=== PATIENT | female | born 1990 | race Hispanic/Latino ===

== ENCOUNTER 2018-01-22 21:41 | Emergency (ER) | payer OTHER ==
[2018-01-22] MEDS ORDERED: LIDOCAINE HCL-MPF 1% 2ML VIAL ONE (22:01)
[2018-01-22] MEDS ORDERED: CEFTRIAXONE SODIUM 1 GM ONE (22:01)
[2018-01-22] MEDS ORDERED: NAPROXEN 500 MG TABLET ONE (22:02)
== END 2018-01-22 22:16 | disposition home or self-care (01) ==
LOC: EDH 21:41
DX: J03.90 Acute tonsillitis, unspecified (principal); Z79.899 Other long term (current) drug therapy
CPT/HCPCS: 96372; 99283; J0696; J3490